=== PATIENT | male | born 1995 | race Caucasian/White ===

== ENCOUNTER 2020-06-10 09:01 | Outpatient (REF) | payer BC, SELFPAY | END 2020-06-10 09:02 | disposition home or self-care (01) | LOC: HO.WFDLDS 09:01 | PROVIDERS: PCP Family Medicine; Visit Provider Internal Medicine | DX: Z20.828 Contact with and (suspected) exposure to other viral communicable diseases (principal) | CPT/HCPCS: 36415; 87635 ==

== ENCOUNTER 2020-09-27 10:19 | Outpatient (REF) | payer BC, SELFPAY | END 2020-09-27 10:20 | disposition home or self-care (01) | LOC: HO.WFDLDS 10:19 | PROVIDERS: PCP Family Medicine; Visit Provider Internal Medicine | DX: Z20.822 Contact with and (suspected) exposure to COVID-19 (principal) | CPT/HCPCS: 36415; C9803; U0003 ==

== ENCOUNTER 2021-01-08 14:16 | Outpatient (REF) | payer BC, SELFPAY ==
--- NOTE | ~2021-01-08 | XR_ITS ---
EXAMINATION: XR ANKLE, LEFT CLINICAL INFORMATION: Left ankle pain. COMPARISON: None. TECHNIQUE: AP, lateral, and mortise views of the left ankle. FINDINGS: There is no evidence of acute fracture or dislocation of the left ankle. No significant soft tissue swelling is seen. Ankle mortise is intact. XR/XR ankle LT 2V IMPRESSION: No significant bony abnormality of the left ankle identified. No soft tissue swelling.
== END 2021-01-08 14:17 | disposition home or self-care (01) ==
LOC: HO.XRAY 14:16
PROVIDERS: PCP Family Medicine; Visit Provider Family Medicine
DX: M25.572 Pain in left ankle and joints of left foot (principal)
CPT/HCPCS: 73600